=== PATIENT | male | born 1950 | race Caucasian/White ===

== ENCOUNTER 2020-04-14 12:32 | Emergency (ER) | payer MEDICARE ==
[~2020-04-14] VITALS: Ht 162.6 cm; Wt 95.0 kg
[2020-04-14 13:48] VITALS: BP 114/78
[2020-04-14] MEDS ORDERED: LISI2.5T PO (13:52)
[2020-04-14] MEDS ORDERED: HYDR-3241 PO (13:53)
[2020-04-14] MEDS ORDERED: OMEP-110 PO (13:53)
--- NOTE | 2020-04-14 14:00 | NUR ---
report to eri francisco
[2020-04-14] MEDS ORDERED: ONDANSETRON 2MG/ML, 2ML ONE (14:16)
[2020-04-14] MEDS: SODIUM CHLORIDE 0.9% 1,000ML IVBOLUS ONE ×2 (14:20→14:27)
--- NOTE | 2020-04-14 14:26 | NUR ---
PT STATES HE WOULD LIKE TO GO HOME AND IS FEELING MUCH BETTER. WILL BE DISCHARGED PER MD.
[2020-04-14 14:28] LABS: BASOPHILS % (AUTO) 0 % (0-1); EOSINOPHILS % (AUTO) 1 % (1-7); LYMPHOCYTES % (AUTO) 14 % (22-44); MEAN CORPUSCULAR HEMOGLOBIN 25.4 pg (27.5-34.5); MEAN CORPUSCULAR HGB CONC 32.9 g/dL (33.2-36.2); MEAN PLATELET VOLUME 9.9 fL (7.4-10.4); MONOCYTES % (AUTO) 22 % (2-9); NEUTROPHILS % (AUTO) 63 % (42-75); PLATELET COUNT 76 x10^3/uL (130-400); RED CELL DISTRIBUTION WIDTH 15.7 % (9.4-14.8)
[2020-04-14] MEDS ORDERED: SODIUM CHLORIDE FLUSH 10ML SYR IVF ONE (14:30)
[2020-04-14] MEDS ORDERED: ONDANSETRON 2MG/ML, 2ML IVPush ONE (14:30)
[2020-04-14 14:33] LABS: ALANINE AMINOTRANSFERASE 50 U/L (12-78); ALBUMIN 3.7 g/dL (3.4-5.0); ANION GAP 5 mmol/L (5-15); CHLORIDE 111 mmol/L (98-107); CREATININE 1.03 mg/dL (0.7-1.3)
[2020-04-14 14:35] LABS: ALKALINE PHOSPHATASE 68 U/L (45-117); BILIRUBIN,TOTAL 0.5 mg/dL (0.2-1.0); TOTAL PROTEIN 7.9 g/dL (6.4-8.2)
[2020-04-14 14:52] LABS: MD SCAN
== END 2020-04-14 14:40 | disposition home or self-care (01) ==
LOC: ED 14:07
DX: R11.2 Nausea with vomiting, unspecified (principal); R19.7 Diarrhea, unspecified; R10.9 Unspecified abdominal pain; I10 Essential (primary) hypertension; F17.200 Nicotine dependence, unspecified, uncomplicated
CPT/HCPCS: 36415; 80053; 83690; 85025; 93005; 99284; J7030